=== PATIENT | female | born 1945 | race Caucasian/White ===

== ENCOUNTER → 2017-07-18 | Outpatient (CLI) | payer MEDICARE ==
[~2017-07-18] MED LIST: ASPI81TA17 PO; ATOR20TA15 PO; COQ-50CA2 PO; KRIL1CAP24 PO; LEVO.1 PO; VITA100018 PO; VITA200C3 PO; VITATAB43 PO; [UNRECOGNIZED DRUG - CODE] PO
[2017-07-18 10:39] LABS: AUTOMATED NEUTROPHIL # 1.9 TH/MM3 (1.8-7.7); BASOPHIL % 1.1 % (0.0-2.0); EOSINOPHIL # 0.1 TH/MM3 (0-0.4); EOSINOPHIL % 2.5 % (0.0-4.0); HEMATOCRIT 41.6 % (35.0-46.0); HEMOGLOBIN 13.7 GM/DL (11.6-15.3); LYMPH % 37.9 % (9.0-44.0); LYMPHOCYTE # 1.4 TH/MM3 (1.0-4.8); MEAN CELL VOLUME 91.6 FL (80.0-100.0); MEAN CORPUSCULAR HEMOGLOBIN 30.2 PG (27.0-34.0); MEAN PLATELET VOLUME 8.9 FL (7.0-11.0); MONO % 6.3 % (0.0-8.0); MONOCYTE # 0.2 TH/MM3 (0-0.9); NEUT % 52.2 % (16.0-70.0); PLATELET COUNT 185 TH/MM3 (150-450); RED BLOOD COUNT 4.55 MIL/MM3 (4.00-5.30); WHITE BLOOD COUNT 3.7 TH/MM3 (4.0-11.0)
[2017-07-18 10:42] LABS: BILIRUBIN, URINE NEG (NEG); BLOOD, URINE NEG (NEG); GLUCOSE,URINE NEG (NEG); KETONE, URINE NEG (NEG); MUCUS URINE FEW /lpf (OCC); NITRITE,URINE NEG (NEG); SQUAMOUS EPITHELIAL CELL URINE 1 /hpf (0-5); URINE COLOR YELLOW (YELLW/STRAW); URINE LEUKOCYTE ESTERASE NEG (NEG)
[2017-07-18 10:47] LABS: INTERNATIONAL NORMALIZED RATIO 1.1 RATIO
[2017-07-18 11:01] LABS: BICARBONATE 31.3 MEQ/L (21.0-32.0); CALCIUM 9.1 MG/DL (8.5-10.1); CREATININE 0.93 MG/DL (0.50-1.00)
--- NOTE | 2017-07-18 11:19 | RADRPT ---
EXAM DATE/TIME: 07/18/2017 11:02 [place] COMPARISON: No previous studies available for comparison. INDICATIONS : Evaluate pneumonia, pneumothorax, or communicable disease. Pre op for knee surgery. MEDICAL HISTORY : Carcinoma, breast. SURGICAL HISTORY : Right breast lumpectomy. ENCOUNTER: Initial ACUITY: 1 day PAIN SCORE: 0/10 LOCATION: Bilateral chest FINDINGS: PA and lateral views of the chest demonstrate the lungs to be symmetrically aerated without evidence of mass, infiltrate or effusion. The cardiomediastinal contours are unremarkable. Osseous structure s are intact. CONCLUSION: No acute disease. Naseem Rooney MD on July 18, 2017 at 11:15 Board Certified Radiologist. This report was verified electronically.
--- NOTE | 2017-07-19 06:27 | EKG ---
Date Performed: 07/18/2017 Time Performed: 10:16:18 PTAGE: 71 years EKG: Sinus rhythm Inferior ST-T changes are nonspecific Borderline ECG Compared to PREVIOUS TRACING , the patient has developed the minimal inferior ST segment changes. Cli nical correlation is advised. PREVIOUS TRACIN09/23/2000 17.02 DOCTOR: Randi Leal Interpretating Date/Time 07/19/2017 06:27:16
== END ==
LOC: CPRE 09:50
PROVIDERS: ATTEND Orthopaedic Surgery
DX: Z01.812 Encounter for preprocedural laboratory examination (principal); Z01.811 Encounter for preprocedural respiratory examination; Z01.810 Encounter for preprocedural cardiovascular examination; S83.241D Other tear of medial meniscus, current injury, right knee, subsequent encounter; R94.31 Abnormal electrocardiogram [ECG] [EKG]; X58.XXXD Exposure to other specified factors, subsequent encounter
CPT/HCPCS: 36415; 71046; 80048; 81001; 85025; 85610; 93005